=== PATIENT | female | born 1980 | race Two or more races ===

== ENCOUNTER 2022-07-14 11:29 | Emergency (ER) | payer MEDICAID ==
[~2022-07-14] VITALS: Ht 162.6 cm; Wt 77.1 kg
[2022-07-14 11:29] VITALS: BP 108/68
--- NOTE | 2022-07-14 11:34 | NUR ---
CALLED FOR TRIAGE NO RESPONSE
--- NOTE | 2022-07-14 11:40 | NUR ---
BIBS C/O NECK AND SHOULDER PAIN AND SPASMS THAT RADIATES TO HER LEFT ARM X4DAYS, DENIES ANY TRAUMA. PT STATES THAT SHE HAS HX OF CHORNIC SPINAL PAIN.
--- NOTE | 2022-07-14 11:42 | NUR ---
DR CEVALLOS AT BEDSIDE
[2022-07-14] MEDS ORDERED: CARI350T PO ×2 (11:50→17:49)
[2022-07-14] MEDS ORDERED: IBUP-1957 PO ×2 (11:50→17:49)
[2022-07-14] MEDS ORDERED: KETOROLAC TROMETHAMINE INJ 30 MG/ML VIAL IM ONE (12:00)
[2022-07-14] MEDS ORDERED: KETOROLAC TROMETHAMINE 15 MG/ML VIAL ONE (12:01)
--- NOTE | 2022-07-14 12:08 | NUR ---
Patient discharged to home in stable condition. Written and verbal after care instructions given. Patient verbalizes understanding of instruction.
== END 2022-07-14 12:08 | disposition home or self-care (01) ==
LOC: ER 11:34
DX: S13.4XXA Sprain of ligaments of cervical spine, initial encounter (principal); Z79.899 Other long term (current) drug therapy; X58.XXXA Exposure to other specified factors, initial encounter; Y93.89 Activity, other specified; Y92.89 Other specified places as the place of occurrence of the external cause; Y99.8 Other external cause status
CPT/HCPCS: 99283; 96372; J1885